=== PATIENT | female | born 1945 | race Caucasian/White ===

== ENCOUNTER 2023-10-25 23:53 | Emergency (ER) | payer MEDICARE, OTHER ==
[~2023-10-25] VITALS: Ht 170.2 cm; Wt 95.0 kg
[2023-10-26 00:21] VITALS: BP 155/82
[2023-10-26] MEDS ORDERED: TRULICITY0.75 MG/0. SC (00:44)
[2023-10-26] MEDS ORDERED: SIMVASTATIN10 MG PO (00:46)
[2023-10-26 01:06] LABS: BASO% 0.2 % (0-3); EOS% 0.6 % (0-8); HEMATOCRIT 43.6 % (37.0-47.0); HEMOGLOBIN 14.9 g/dl (12.0-16.0); IMMATURE GRANULOCYTES 0.6 % (0.0-5.0); LYMPH% 10.2 % (15-41); MEAN CORPUSCULAR HGB 31.8 pG CALC (26.0-32.0); MEAN CORPUSCULAR HGB CONC 34.2 g/dL CAL (32.0-36.0); MONO% 9.5 % (2-13); NEUT# 4.87 thou/uL (2.00-7.15); NEUT% 78.9 % (42-76); RED BLOOD COUNT 4.69 mill/uL (4.20-5.60); RED CELL DISTRI WIDTH 11.8 % (11.5-15.5)
[2023-10-26 01:14] LABS: ANION GAP 13 (6-22 (CALC)); BUN 12 mg/dL (8-23); BUN/CREATININE RATIO 14 (12-20 (CALC)); CARBON DIOXIDE 26 mmol/l (22-30); CHLORIDE 102 mmol/l (95-108); CREATININE 0.8 mg/dL (0.5-1.0); GFR FOR AFR.AMER. > 60 ML/MIN (>=60 (CALC)); GFR OTHER RACES > 60 ML/MIN (>=60 (CALC)); SODIUM 138 mmol/l (137-146)
[2023-10-26] MEDS ORDERED: TAM75CAP PO (01:31)
[2023-10-26] MEDS ORDERED: PAXLOVID PO (01:31)
[2023-10-26 01:53] VITALS: BP 155/82
== END 2023-10-26 02:00 | disposition home or self-care (01) ==
LOC: ED 23:53
PROVIDERS: Family Medicine
DX: U07.1 COVID-19 (principal); J10.1 Influenza due to other identified influenza virus with other respiratory manifestations; E11.9 Type 2 diabetes mellitus without complications; Z79.85 Long-term (current) use of injectable non-insulin antidiabetic drugs; Z28.311 Partially vaccinated for COVID-19